=== PATIENT | male | born 1985 | race African-American/Black ===

== ENCOUNTER 2019-11-15 14:22 | Emergency (ER) | payer OTHER ==
[2019-11-15 14:29] VITALS: BP 124/84
--- NOTE | 2019-11-15 14:34 | ED Physician Documentation ---
PD HPI OPHTHO - Stated complaint Stated Complaint: LT EYE IRRATATION - Chief complaint Chief Complaint: Heent - History obtained from History obtained from: Patient - History of Present Illness Timing - onset: Today (awoke with iritation feeling left eye this morning. He tried flushing it and thought he saw a hair under lid. But continues to feel irritated.) Timing - duration: Hours Timing - details: Abrupt onset, Still present Location: Left Associated symptoms: FB sensation. No: Redness, Swelling, Discharge, Photophobia Contributing factors: FB (he thought he got a cat hair in eye.). No: Wears contacts Similar symptoms before: Has not had sx before Review of Systems Eyes: reports: Irritation. denies: Decreased vision, Photophobia, Discharge Nose: denies: Rhinorrhea / runny nose, Congestion Throat: denies: Sore throat Respiratory: denies: Cough PD PAST MEDICAL HISTORY - Past Medical History HEENT: None - Present Medications Home Medications: Ambulatory Orders Medication Instructions Recorded Confirmed Erythromycin Base [Erythromycin 1 applic OP QID #3.5 oint...g. 11/15/19 Ophthalmic Ointment] - Allergies Allergies/Adverse Reactions: Allergies Allergy/AdvReac Type Severity Reaction Status Date / Time No Known Drug Allergies Allergy Verified 11/15/19 14:29 PD ED PE NORMAL - Vitals Vital signs reviewed: Yes - General General: Alert and oriented X 3, No acute distress, Well developed/nourished - HEENT HEENT: PERRL, EOMI PD ED PE EXPANDED - Eyes Eyes: Injected conj/sclera (mild), Corneal abrasion (small patchy superficial area at 12 o/clock position. ). No: Exudate, Corneal FB, Corneal ulcer Results - Vitals Vitals: Oxygen O2 Source Room air PD MEDICAL DECISION MAKING - ED course Complexity details: considered differential (small patch of uptake left upper eye without vesicles, c/w prior FB that rubbed the area. ), d/w patient Departure - Departure Disposition: 01 Home, Self Care Clinical Impression: Corneal abrasion Qualifiers: Encounter type: initial encounter Laterality: left Qualified Code(s): S05.02XA - Injury of conjunctiva and corneal abrasion without foreign body, left eye, initial encounter Condition: Stable Record reviewed to determine appropriate education?: Yes Instructions: ED Eye Injury Corneal Abrasion Follow-Up: JUAN Grijalva [Provider Group] Prescriptions: Erythromycin Base [Erythromycin Ophthalmic Ointment] 1 applic OP QID #3.5 oint...g. Comments: Use the antibiotic ointment every 2-3 hours while awake for comfort. Were actually using it for the ointment part to coat the eye surface and provide some degree of relief of discomfort. Ibuprofen or Tylenol as needed as well. This should improve through the day and it can be mostly better by tomorrow and completely better with then a day or 2 at most. Recheck if not better during that time or if other symptoms develop. It does look like a small scouring effect type abrasion so presume there was something under the lid that then scratched up the surface and that is the feeling that you are having still. This should heal pretty readily. Discharge Date/Time: 11/15/19 15:10
[2019-11-15] MEDS ORDERED: ERYTHROMYCIN OPHTH OINT 1 GM TUBE LEFTEYE STA (14:58)
[2019-11-15] MEDS ORDERED: IBUPROFEN 600 MG TABLET PO STA (14:59)
== END 2019-11-15 15:10 | disposition home or self-care (01) ==
LOC: ED 14:22
DX: S05.02XA Injury of conjunctiva and corneal abrasion without foreign body, left eye, initial encounter (principal); X58.XXXA Exposure to other specified factors, initial encounter
CPT/HCPCS: 99282; 99283; A9270; J3490